=== PATIENT | female | born 1980 | race Two or more races ===

== ENCOUNTER 2024-04-18 20:40 | Emergency (ER) | payer OTHER ==
[~2024-04-18] VITALS: Ht 177.8 cm; Wt 95.3 kg
== END 2024-04-18 22:53 | disposition home or self-care (01) ==
LOC: ER 20:41
DX: S05.8X2A Other injuries of left eye and orbit, initial encounter (principal); X58.XXXA Exposure to other specified factors, initial encounter; Y93.89 Activity, other specified; Y92.89 Other specified places as the place of occurrence of the external cause; Y99.8 Other external cause status

== ENCOUNTER 2024-04-19 12:33 | Outpatient (CLI) | payer OTHER | END 2024-04-19 12:40 | disposition home or self-care (01) | LOC: MAMO-SONO 12:33 | PROVIDERS: ATTEND Internal Medicine Gastroenterology | DX: Z12.39 Encounter for other screening for malignant neoplasm of breast (principal) ==

== ENCOUNTER 2024-09-03 17:33 | Emergency (ER) | payer OTHER ==
[~2024-09-03] VITALS: Ht 177.8 cm; Wt 122.5 kg
[2024-09-03] MEDS ORDERED: IBU600 MG PO (21:10)
== END 2024-09-03 21:28 | disposition home or self-care (01) ==
LOC: ER 17:35
DX: S60.051A Contusion of right little finger without damage to nail, initial encounter (principal); X58.XXXA Exposure to other specified factors, initial encounter; Y93.89 Activity, other specified; Y92.89 Other specified places as the place of occurrence of the external cause; Y99.9 Unspecified external cause status